=== PATIENT | female | born 1990 | race Caucasian/White ===

== ENCOUNTER 2017-06-01 16:13 | Emergency (ER) | payer BC ==
[2017-06-01] MEDS ORDERED: Al Hydrox/Mg Hydrox/Simet LIQ* 30 ML UDC PO ONE (18:14)
--- NOTE | 2017-06-01 18:20 | ED ---
HPI Chest Pain - HPI Summary HPI Summary: Patient with a history of bulimia presents to the ED with chief complaint of midsternal and epigastric pain radiating through to the back into the left posterior shoulder and left anterior chest wall. Denies any shortness of breath. Symptoms have been present 1 week. Worse after eating, better in the morning. Symptoms are not aggravated with exertion and not better with rest. She has taken Tums without significant relief. She was seen by urgent care who performed an EKG which showed no abnormal findings. Recent episodes of emesis with nausea and are not self-induced 3 this week. Last self-induced vomiting episode was several months prior. Significant for drink any coffee in the morning, denies smoking history, denies cocaine use or other drugs. - History of Current Complaint Chief Complaint: EDChestPainROMI Time Seen by Provider: 06/01/17 18:06 Hx Obtained From: Patient Onset/Duration: Started Hours Ago Timing: Constant Initial Severity: Moderate Current Severity: Moderate Pain Intensity: 6 Pain Scale Used: 0-10 Numeric Chest Pain Location: Discrete at:, Mid Sternal, Left Anterior Chest Pain Radiates: Yes Chest Pain Radiates To:: Shoulder Character: Dull/Aching Aggravating Factor(s): Rest Alleviating Factor(s): Spontaneous Resolution - Risk Factors Pulmonary Embolism Risk Factors: Negative TAD Risk Factors: Negative - Allergy/Home Medications Allergies/Adverse Reactions: Allergies Allergy/AdvReac Type Severity Reaction Status Date / Time No Known Allergies Allergy Verified 06/01/17 19:00 PMH/Surg Hx/FS Hx/Imm Hx Previously Healthy: Yes - Immunization History Hx Pertussis Vaccination: No Immunizations Up to Date: Unable to Obtain/Confirm Infectious Disease History: No Infectious Disease History: Denies: Traveled Outside the [place] in Last 30 Days - Social History Occupation: Employed Part-time Lives: With Family Alcohol Use: None - Gen. Hx Substance Use: No Substance Use Type: Reports: Cocaine Hx Tobacco Use: No Smoking Status (MU): Never Smoked Tobacco Review of Systems Constitutional: Negative Negative: Fever, Chills, Fatigue, Skin Diaphoresis Positive: Chest Pain Negative: Shortness Of Breath, Cough Positive: Vomiting, Nausea. Negative: Abdominal Pain, Diarrhea Positive: no symptoms reported, see HPI Musculoskeletal: Negative Neurological: Negative All Other Systems Reviewed And Are Negative: Yes Physical Exam Triage Information Reviewed: Yes Vital Signs On Initial Exam: Initial Vitals Temp Pulse Resp BP Pulse Ox 98.7 F 88 16 122/67 99 06/01/17 16:16 06/01/17 16:16 06/01/17 16:16 06/01/17 16:16 06/01/17 16:16 Vital Signs Reviewed: Yes Appearance: Positive: Well-Appearing, Well-Nourished Skin: Positive: Warm, Skin Color Reflects Adequate Perfusion Head/Face: Positive: Normal Head/Face Inspection Eyes: Positive: EOMI, WILMER, Conjunctiva Clear Neck: Positive: Supple, No Lymphadenopathy Respiratory/Lung Sounds: Positive: Clear to Auscultation, Breath Sounds Present Cardiovascular: Positive: Normal, RRR, Pulses are Symmetrical in both Upper and Lower Extremities Musculoskeletal: Positive: Strength/ROM Intact Neurological: Positive: Normal, Sensory/Motor Intact, Speech Normal Psychiatric: Positive: Affect/Mood Appropriate AVPU Assessment: Alert Diagnostics - Vital Signs Vital Signs Temp Pulse Resp BP Pulse Ox 06/01/17 16:16 98.7 F 88 16 122/67 99 - Laboratory Result Diagrams: 06/01/17 18:34 06/01/17 18:34 Lab Statement: Any lab studies that have been ordered have been reviewed, and results considered in the medical decision making process. Chest Pain Course/Dx - Course Course Of Treatment: During the course of treatment, the patient is evaluated for midsternal chest pain radiating to the left anterior chest wall and posterior shoulder. Symptoms have remained intermittent, worse after eating, better in the mornings. Has taken Tums without symptom relief. Episodes of vomiting, some spontaneous and some self-induced as patient has a history of bulimia. Reobtained. Chest x-ray obtained IMPRESSION: No radiographic evidence of acute cardiopulmonary disease. Troponin 0.00. Maalox given with mild relief. All labs are unremarkable. Due to her bulimia history, I believe she has symptoms of epigastric pain secondary to peptic ulcer versus gastritis. I advised she take omeprazole once daily and Maalox for breakthrough pain. She will follow-up with her PCP and is okay for discharge. - Chest Pain Differential Diagnosis/HQI/PQRI: Chest Wall - Diagnoses Provider Diagnoses: Peptic ulcer Discharge - Sign-Out/Discharge Documenting (check all that apply): Discharge - Discharge Plan Condition: Stable Disposition: HOME Prescriptions: Al Hydrox/Mg Hydrox/Simet LIQ* [Maalox Plus*] 30 ml PO Q4H PRN #1 udc PRN Reason: Pain Omeprazole 40 mg PO DAILY #30 capsule. Patient Education Materials: Peptic Ulcer (ED), Epigastric Pain (ED) Referrals: No Primary Care Phys,NOPCP [Primary Care Provider] - Additional Instructions: Please follow up with PCP Call for an appointment Omeprazole 40 mg once daily This medication is also [id number] Maalox 30ml as needed every 4 hours for breakthrough epigastric pain - Billing Disposition and Condition Condition: STABLE Disposition: HOME
[2017-06-01 18:44] LABS: ABS Basophils 0 10^3/ul (0-0.2); ABS Eosinophils 0.1 10^3/ul (0-0.6); ABS Lymphocytes 1.6 10^3/ul (1.0-4.8); ABS Monocytes 0.5 10^3/ul (0-0.8); ABS Neutrophils 5.8 10^3/ul (1.5-7.7); ABS Nucleated RBC 0 10^3/ul; Eosinophil % 0.8 % (0-6); Hematocrit 39 % (35-47); Hemoglobin 13.2 g/dl (12.0-16.0); Lymphocyte % 19.9 % (25-47); Mean Corpuscular HGB Conc 34 g/dl (31-36); Mean Corpuscular Hemoglobin 30 pg (27-31); Mean Corpuscular Volume 90 fL (80-97); Mean Platelet Volume 9.2 um3 (7.4-10.4); Nucleated Red Blood Cells % 0; Platelet Count 249 10^3/ul (150-450); Red Blood Count 4.35 10^6/ul (4.0-5.4); Red Cell Distribution Width 13 % (10.5-15); White Blood Count 7.9 10^3/ul (3.5-10.8)
[2017-06-01 19:02] LABS: EGFR Non-African American 96.4 (>60)
--- NOTE | 2017-06-01 19:04 | RAD ---
INDICATION: 7 days of chest pain COMPARISON: None TECHNIQUE: PA and lateral views of the chest were obtained. FINDINGS: The heart and mediastinum are normal in size and contour. The lungs are grossly clear. There is no evidence of large pleural effusion. Visualized bones are normal for the patient's age. There is no radiographic evidence of free air beneath the diaphragm IMPRESSION: No radiographic evidence of acute cardiopulmonary disease.
[2017-06-01] MEDS ORDERED: Acetaminophen TAB* 325 MG PO ONE (19:20)
[2017-06-01 19:35] VITALS: BP 109/59
== END 2017-06-01 19:34 | disposition home or self-care (01) ==
LOC: ED 16:13
DX: K27.9 Peptic ulcer, site unspecified, unspecified as acute or chronic, without hemorrhage or perforation (principal); R10.13 Epigastric pain; R07.9 Chest pain, unspecified; R11.2 Nausea with vomiting, unspecified; Z86.59 Personal history of other mental and behavioral disorders
CPT/HCPCS: 36415; 71046; 80053; 83690; 84484; 85025; 93005; 99282; A9270-GY

== ENCOUNTER 2018-05-12 13:01 | Emergency (ER) | payer BC ==
[2018-05-12 13:37] LABS: ABS Basophils 0 10^3/ul (0-0.2); ABS Eosinophils 0.1 10^3/ul (0-0.6); ABS Lymphocytes 2.6 10^3/ul (1.0-4.8); ABS Monocytes 0.6 10^3/ul (0-0.8); ABS Neutrophils 2.9 10^3/ul (1.5-7.7); ABS Nucleated RBC 0 10^3/ul; Eosinophil % 2.3 %; Hematocrit 42 % (35-47); Hemoglobin 13.6 g/dl (12.0-16.0); Lymphocyte % 41.3 %; Mean Corpuscular HGB Conc 33 g/dl (31-36); Mean Corpuscular Hemoglobin 30 pg (27-31); Mean Corpuscular Volume 93 fL (80-97); Mean Platelet Volume 9.1 fL (7.4-10.4); Nucleated Red Blood Cells % 0.2; Platelet Count 250 10^3/ul (150-450); Red Cell Distribution Width 13 % (10.5-15); White Blood Count 6.2 10^3/ul (3.5-10.8)
[2018-05-12 13:53] LABS: ALT 12 U/L (7-52); AST 16 U/L (13-39); Albumin 4.3 g/dL (3.2-5.2); Albumin/Globulin Ratio 1.7 (1-3); Alkaline Phosphatase 47 U/L (34-104); Anion Gap 5 mmol/L (2-11); BUN/Creatinine Ratio 17.8 (8-20); Blood Urea Nitrogen 13 mg/dL (6-24); CO2 Carbon Dioxide 29 mmol/L (22-32); Calcium 9.4 mg/dL (8.6-10.3); Chloride 103 mmol/L (101-111); EGFR African American 117.5 (>60); EGFR Non-African American 97.1 (>60); Globulin 2.6 g/dL (2-4); Glucose 98 mg/dL (70-100); Potassium 3.6 mmol/L (3.5-5.0); Sodium 137 mmol/L (135-145); Total Protein 6.9 g/dL (6.4-8.9)
[2018-05-12 14:00] LABS: HCG Pregnancy < 0.60 mIU/mL
[2018-05-12 14:50] LABS: TSH (Thyroid Stimulating Horm) 1.04 mcIU/mL (0.34-5.60)
--- NOTE | 2018-05-12 15:34 | ED ---
Abdominal Pain/Female - HPI Summary HPI Summary: Pt. is a 27 y.o female who presents to the ER for ongoing epigastric pain and CP x >1 year. Pt. states she has seen GI for this complaint and has had a negative endoscopy according to pt. Pt. states she was started on a PPI which she stopped bc it was not helping. Pt. presents today because pain was worse. She denies vomiting, diarrhea, fever, sob, cough, urinary sxs. Pt. notes she is a heavy smoker and also admits to daily ETOH use. Pt. denies other drug use to me but according to chart has a hx of cocaine use and THC use. Sxs are moderate in severity. NO current modifying factors. - History of Current Complaint Chief Complaint: EDChestPainROMI Stated Complaint: ABD PAIN Time Seen by Provider: 05/12/18 13:17 Hx Obtained From: Patient Pain Intensity: 3 Allergies/Adverse Reactions: Allergies Allergy/AdvReac Type Severity Reaction Status Date / Time scallops Allergy Vomiting Verified 05/12/18 13:09 PMH/Surg Hx/FS Hx/Imm Hx Previously Healthy: Yes Sensory History: Denies: Hx Legally Blind, Hx Deafness Opthamlomology History: Denies: Hx Legally Blind Psychiatric History: Denies: Hx Eating Disorder, Hx of Violent Episodes Against Others Infectious Disease History: No Infectious Disease History: Denies: Traveled Outside the [place] in Last 30 Days - Family History Known Family History: Negative: Blood Disorder - Social History Occupation: Unemployed Lives: With Family Alcohol Use: None Hx Substance Use: No Substance Use Type: Reports: Cocaine, Marijuana Hx Tobacco Use: No Smoking Status (MU): Heavy Every Day Tobacco Smoker Review of Systems Constitutional: Negative Eyes: Negative ENT: Negative Positive: Chest Pain Respiratory: Negative Positive: Abdominal Pain, Nausea Genitourinary: Negative Musculoskeletal: Negative Skin: Negative Neurological: Negative All Other Systems Reviewed And Are Negative: Yes Physical Exam Triage Information Reviewed: Yes Vital Signs On Initial Exam: Initial Vitals Temp Pulse Resp BP Pulse Ox 98.0 F 76 16 114/78 100 05/12/18 13:04 05/12/18 13:04 05/12/18 13:04 05/12/18 13:04 05/12/18 13:04 Vital Signs Reviewed: Yes Appearance: Positive: Well-Appearing - Pt. sitting up in bed in NAD Skin: Positive: Warm, Dry Head/Face: Positive: Normal Head/Face Inspection Eyes: Positive: Normal, EOMI ENT: Positive: Pharynx normal, TMs normal Neck: Positive: Supple Respiratory/Lung Sounds: Positive: Clear to Auscultation, Breath Sounds Present Cardiovascular: Positive: Normal, RRR Abdomen Description: Positive: Other: - Abd. is soft with mild pain to epigastric region. Negative: CVA Tenderness (R), CVA Tenderness (L) Neurological: Positive: Normal, CN Intact II-III Psychiatric: Positive: Affect/Mood Appropriate Diagnostics - Vital Signs Vital Signs Temp Pulse Resp BP Pulse Ox 05/12/18 15:00 65 12 97 05/12/18 14:56 73 18 110/68 99 05/12/18 14:48 56 19 111/69 97 05/12/18 14:18 62 18 114/77 98 05/12/18 14:00 63 17 99 05/12/18 13:48 13 118/62 05/12/18 13:28 64 21 116/78 98 05/12/18 13:18 66 108/80 99 05/12/18 13:17 63 98 05/12/18 13:04 98.0 F 76 16 114/78 100 - Laboratory Lab Results: Lab Results 05/12/18 05/12/18 05/12/18 Range/Units 13:28 13:29 14:56 WBC 6.2 (3.5-10.8) 10^3/ul RBC 4.50 (4.00-5.40) 10^6/ul Hgb 13.6 (12.0-16.0) g/dl Hct 42 (35-47) % MCV 93 (80-97) fL MCH 30 (27-31) pg MCHC 33 (31-36) g/dl RDW 13 (10.5-15) % Plt Count 250 (150-450) 10^3/ul MPV 9.1 (7.4-10.4) fL Neut % (Auto) 46.3 % Lymph % (Auto) 41.3 % Atlantic % (Auto) 9.6 % Eos % (Auto) 2.3 % Baso % (Auto) 0.5 % Absolute Neuts (auto) 2.9 (1.5-7.7) 10^3/ul Absolute Lymphs (auto) 2.6 (1.0-4.8) 10^3/ul Absolute Monos (auto) 0.6 (0-0.8) 10^3/ul Absolute Eos (auto) 0.1 (0-0.6) 10^3/ul Absolute Basos (auto) 0 (0-0.2) 10^3/ul Absolute Nucleated RBC 0 10^3/ul Nucleated RBC % 0.2 D-Dimer, Quantitative < 200 (Less Than 230) ng/mL Sodium 137 (135-145) mmol/L Potassium 3.6 (3.5-5.0) mmol/L Chloride 103 (101-111) mmol/L Carbon Dioxide 29 (22-32) mmol/L Anion Gap 5 (2-11) mmol/L BUN 13 (6-24) mg/dL Creatinine 0.73 (0.51-0.95) mg/dL Est GFR ( Amer) 117.5 (>60) Est GFR (Non-Af Amer) 97.1 (>60) BUN/Creatinine Ratio 17.8 (8-20) Glucose 98 (70-100) mg/dL Calcium 9.4 (8.6-10.3) mg/dL Total Bilirubin 0.40 (0.2-1.0) mg/dL AST 16 (13-39) U/L ALT 12 (7-52) U/L Alkaline Phosphatase 47 (34-104) U/L Troponin I 0.00 (<0.04) ng/mL Total Protein 6.9 (6.4-8.9) g/dL Albumin 4.3 (3.2-5.2) g/dL Globulin 2.6 (2-4) g/dL Albumin/Globulin Ratio 1.7 (1-3) TSH 1.04 (0.34-5.60) mcIU/mL Beta HCG, Quant < 0.60 mIU/mL Result Diagrams: 05/12/18 13:28 05/12/18 13:29 Lab Statement: Any lab studies that have been ordered have been reviewed, and results considered in the medical decision making process. Abdominal Pain Fem Course/Dx - Course Course Of Treatment: Pt. presenting with ongoing upper abd. pain and CP. She is afebrile with stable VS. She has a benign abd. exam. ECG done at 1321 shows a sinus bradycardia at 59bpm, normal axis, no ST elevation depression. CXR negative for acute findings per radiology. Labs including neg. ddime and troponin. Results discussed. Will start on previcid. Strongly advised smoking and ETOH use as these are probably causing her sxs. To call pcp today for close f.u apt. to return to ER if sxs change or worsen. Pt. understands and agrees with plan. - Diagnoses Differential Diagnosis: Positive: Appendicitis, Ectopic , Gall Bladder Disease, Hepatitis, Irritable Bowel Syndrome, Peptic Ulcer Disease Provider Diagnoses: Epigastric pain, Atypical chest pain Discharge - Sign-Out/Discharge Documenting (check all that apply): Patient Departure Patient Received Moderate/Deep Sedation with Procedure: No - Discharge Plan Condition: Good Disposition: HOME Prescriptions: Lansoprazole [Prevacid] 15 mg PO DAILY #30 capsule. Patient Education Materials: Chest Pain (ED), Gastroesophageal Reflux Disease ( ED) Referrals: Valente Romero MD [Primary Care Provider] - Additional Instructions: Call PCP on Monday for a close follow up appointment Take medication as directed Avoid drinking alcohol and smoking Return to ER if symptoms change or worsen - Billing Disposition and Condition Condition: GOOD Disposition: Home
[2018-05-12 16:23] LABS: Urine Appearance Clear; Urine Bilirubin Negative (Negative); Urine Blood Negative (Negative); Urine Color Yellow; Urine Glucose Negative (Negative); Urine Ketones Trace (Negative); Urine Nitrite Negative (Negative); Urine Protein Negative (Negative); Urine Specific Gravity 1.009 (1.010-1.030); Urine Urobilinogen Negative (Negative)
[2018-05-12 16:38] VITALS: BP 106/61
== END 2018-05-12 16:36 | disposition home or self-care (01) ==
LOC: ED 13:01
DX: R10.9 Unspecified abdominal pain (principal); K21.9 Gastro-esophageal reflux disease without esophagitis; R07.9 Chest pain, unspecified; F17.210 Nicotine dependence, cigarettes, uncomplicated
CPT/HCPCS: 36415; 71045; 80053; 81003; 83690; 84443; 84484; 84702; 85025; 85379; 93005; 99283

== ENCOUNTER 2018-07-15 21:35 | Emergency (ER) | payer BC ==
[2018-07-15 21:49] VITALS: BP 118/63
--- NOTE | 2018-07-15 21:54 | UC ---
Skin Complaint HPI - HPI Summary HPI Summary: Found a tick on her right leg this evening. Was out earlier today. Was able to remove the non-engorged tick. Tender bite area - History of Current Complaint Stated Complaint: TICK BITE Hx Obtained From: Patient ?: No Onset/Duration: Sudden Onset, Lasting Hours - 2, Still Present Skin Exposure Onset/Duration: Hours Ago - 5 Onset Severity: Mild Current Severity: Mild Location: Discrete - right lower leg Aggravating Factor(s): Touch Alleviating Factor(s): Nothing Associated Signs & Symptoms: Positive: Tenderness - right leg Related History: Insect Bite/Sting - Allergy/Home Medications Allergies/Adverse Reactions: Allergies Allergy/AdvReac Type Severity Reaction Status Date / Time scallops Allergy Vomiting Verified 07/15/18 21:48 Home Medications: Home Medications NK [No Home Medications Reported] 07/15/18 [History Confirmed 07/15/18] PMH/Surg Hx/FS Hx/Imm Hx Previously Healthy: Yes - Family History Known Family History: Positive: Unknown - Adopted Negative: Blood Disorder - Social History Occupation: Employed Part-time Lives: Alone - with room mate Alcohol Use: None Substance Use Type: Cocaine, Marijuana Smoking Status (MU): Heavy Every Day Tobacco Smoker Review of Systems All Other Systems Reviewed And Are Negative: Yes Skin: Positive: Other - tick bite Is Patient Immunocompromised?: No Physical Exam Triage Information Reviewed: Yes Appearance: Well-Appearing, No Pain Distress, Well-Nourished Vital Signs Reviewed: Yes Eyes: Positive: Conjunctiva Inflamed Neck exam: Normal Respiratory Exam: Normal Cardiovascular Exam: Normal Abdomen Description: Positive: Nontender, No Organomegaly Musculoskeletal Exam: Normal Neurological Exam: Normal Psychological Exam: Normal Skin: Positive: Other - red, irritated tick bite wound right lower anterior thigh. Course/Dx - Differential Diagnoses - Skin Complaint Differential Diagnoses: Allergic Reaction, Cellulitis, Tick Born Illness - Diagnoses Provider Diagnosis: Tick bite of right lower leg Discharge - Sign-Out/Discharge Documenting (check all that apply): Patient Departure All imaging exams completed and their final reports reviewed: No Studies - Discharge Plan Condition: Stable Disposition: HOME Patient Education Materials: Tick Bite (ED) Referrals: Valente Romero MD [Primary Care Provider] - Additional Instructions: Low risk tick bite. No antibiotics needed. - Billing Disposition and Condition Condition: STABLE Disposition: Home
== END 2018-07-15 22:03 | disposition home or self-care (01) ==
LOC: UCEAST 21:35
DX: S80.861A Insect bite (nonvenomous), right lower leg, initial encounter (principal); W57.XXXA Bitten or stung by nonvenomous insect and other nonvenomous arthropods, initial encounter; Y92.9 Unspecified place or not applicable; Z91.013 Allergy to seafood; F17.200 Nicotine dependence, unspecified, uncomplicated
CPT/HCPCS: 99211; G0463

== ENCOUNTER 2018-12-31 16:45 | Emergency (ER) | payer BC ==
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
[2018-12-31 19:15] LABS: Urine Appearance Cloudy; Urine Bilirubin Negative (Negative); Urine Blood Negative (Negative); Urine Color Yellow; Urine Glucose Negative (Negative); Urine Ketones 1+ (Negative); Urine Nitrite Negative (Negative); Urine Protein Negative (Negative); Urine Specific Gravity 1.017 (1.010-1.030); Urine Urobilinogen Negative (Negative)
[2018-12-31 19:35] LABS: Urine Benzodiazepine Screen None Detected (None Detect); Urine Opiates Screen None Detected (None Detect)
[2018-12-31 19:47] LABS: ABS Eosinophils 0.1 10^3/ul (0-0.6); ABS Lymphocytes 2.1 10^3/ul (1.0-4.8); ABS Monocytes 0.7 10^3/ul (0-0.8); ABS Neutrophils 4.5 10^3/ul (1.5-7.7); Eosinophil % 1.8 %; Hematocrit 39 % (35-47); Lymphocyte % 28.4 %; Mean Corpuscular HGB Conc 34 g/dL (31-36); Mean Corpuscular Hemoglobin 31 pg (27-31); Mean Corpuscular Volume 91 fL (80-97); Mean Platelet Volume 9.5 fL (7.4-10.4); Nucleated Red Blood Cells % 0.1; Platelet Count 232 10^3/uL (150-450); Red Blood Count 4.24 10^6 /uL (3.70-4.87); Red Cell Distribution Width 14 % (10-15); White Blood Count 7.5 10^3/uL (3.5-10.8)
[2018-12-31 19:57] LABS: ALT 12 U/L (7-52); AST 20 U/L (13-39); Albumin 4.1 g/dL (3.2-5.2); Albumin/Globulin Ratio 1.5 (1-3); Alkaline Phosphatase 61 U/L (34-104); Anion Gap 5 mmol/L (2-11); BUN/Creatinine Ratio 21.1 (8-20); Blood Urea Nitrogen 15 mg/dL (6-24); CO2 Carbon Dioxide 29 mmol/L (22-32); Calcium 9.2 mg/dL (8.6-10.3); Chloride 102 mmol/L (101-111); EGFR African American 120.4 (>60); EGFR Non-African American 99.5 (>60); Globulin 2.7 g/dL (2-4); Glucose 103 mg/dL (70-100); Potassium 3.6 mmol/L (3.5-5.0); Sodium 136 mmol/L (135-145); Total Protein 6.8 g/dL (6.4-8.9)
[2018-12-31 19:58] LABS: Alcohol < 10 mg/dL (<10); Salicylate < 2.50 mg/dL (<30)
[2018-12-31 20:12] LABS: TSH (Thyroid Stimulating Horm) 0.91 mcIU/mL (0.34-5.60)
[2018-12-31 20:29] LABS: Acetaminophen < 15 mcg/mL
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
[2019-01-01 00:39] VITALS: BP 120/73
== END 2019-01-01 00:34 | disposition home or self-care (01) ==
LOC: ED 16:45
DX: S60.812A Abrasion of left wrist, initial encounter (principal); S10.91XA Abrasion of unspecified part of neck, initial encounter; X83.8XXA Intentional self-harm by other specified means, initial encounter; Y92.9 Unspecified place or not applicable; F17.210 Nicotine dependence, cigarettes, uncomplicated
CPT/HCPCS: 36415; 80053; 80307; 80320; 80329; 81003; 84443; 85025; 99284; G0480